=== PATIENT | female | born 1955 | race Hispanic/Latino ===

== ENCOUNTER 2017-09-18 18:50 | Observation (INO) | payer OTHER ==
[~2017-09-18] VITALS: Ht 154.9 cm; Wt 70.1 kg
[2017-09-18 19:21] LABS: BASOPHILS % (AUTO) 0.4 % (0.0-5.0); EOSINOPHILS % (AUTO) 0.1 % (0.0-8.0); HEMATOCRIT 36.7 % (36-48); LYMPHOCYTES % (AUTO) 10.4 % (21.0-51.0); MEAN CORPUSCULAR HEMOGLOBIN 32.7 pg (27.0-33.0); MEAN CORPUSCULAR HGB CONC 34.1 g/dL (32.0-36.0); MEAN CORPUSCULAR VOLUME 96.1 fL (79-99); MONOCYTES % (AUTO) 1.8 % (3.0-13.0); NEUTROPHILS % (AUTO) 87.3 % (40.0-77.0); NUCLEATED RED BLOOD CELLS 0.1 % (0.0-0.19); PLATELET COUNT (AUTO) 389 K/uL (130-400); RED BLOOD CELL COUNT(AUTO) 3.82 MIL/uL (4.00-5.50); RED CELL DISTRIBUTION WIDTH 15.3 % (11.0-15.5)
[2017-09-18 19:31] LABS: CREATININE 0.6 mg/dL (0.5-1.5); POTASSIUM 3.7 mmol/L (3.5-5.1)
[2017-09-18 19:38] LABS: INR 0.95 (0.85-1.15); PARTIAL THROMBOPLASTIN TIME 28.7 SEC (26.3-35.5)
[2017-09-18 19:44] LABS: ALBUMIN 3.9 g/dL (3.5-5.0); BILIRUBIN,TOTAL 0.6 mg/dL (0.2-1.0); CREATINE KINASE MB 4.1 ng/mL (0.5-3.6)
[2017-09-18] MEDS ORDERED: ENOXAPARIN SODIUM 100 MG/1 ML SQ ONE (20:43)
[2017-09-18] MEDS ORDERED: ASPIRIN 325 MG TABLET ONE (20:44)
[2017-09-18] MEDS ORDERED: NITROGLYCERIN 1GM/1 INCH PACKET TD ONE (21:26)
[2017-09-18 21:40] VITALS: BP 146/84
[2017-09-18] MEDS: NITROGLYCERIN 1GM/1 INCH PACKET TD SCH (22:00)
[2017-09-18 23:34] VITALS: BP 117/69
[2017-09-19] MEDS ORDERED: PRED10TA3 PO (00:06)
[2017-09-19] MEDS ORDERED: ALEN35TA31 PO (00:06)
[2017-09-19] MEDS ORDERED: FOLI1TAB15 PO (00:06)
[2017-09-19] MEDS ORDERED: AZAT50TA PO (00:06)
[2017-09-19] MEDS ORDERED: METH25VI11 IJ (00:06)
[2017-09-19 01:30] LABS: CREATINE KINASE MB 2.5 ng/mL (0.5-3.6); CREATINE KINASE, TOTAL 215 U/L (21-232); MYOGLOBIN 64 ng/mL (10-92); TROPONIN I < 0.04 ng/mL (0.00-0.06)
[2017-09-19 04:44] VITALS: BP 124/75
[2017-09-19] MEDS: NITROGLYCERIN 1GM/1 INCH PACKET TD SCH (04:51)
[2017-09-19] MEDS ORDERED: NITROGLYCERIN 1GM/1 INCH PACKET TD SCH (07:44)
[2017-09-19] MEDS ORDERED: LIDOCAINE HCL-MPF 1% 2ML VIAL IVP PRN (07:45)
[2017-09-19] MEDS ORDERED: LACTULOSE 20 GM/30 ML UDCUP PO PRN (07:45)
[2017-09-19] MEDS ORDERED: POTASSIUM CHLORIDE 10% ELIXIR 20 MEQ/15 ML UDCUP PO PRN (07:45)
[2017-09-19] MEDS ORDERED: MAG HYDROX/AL HYDROX/SIMETH ES 30 ML SUSP UDCUP PO PRN (07:45)
[2017-09-19] MEDS ORDERED: POTASSIUM CHLORIDE 20 MEQ ERTAB PO PRN (07:45)
[2017-09-19] MEDS ORDERED: ONDANSETRON HCL 4 MG/2 ML VIAL IV PRN (07:45)
[2017-09-19] MEDS ORDERED: ACETAMINOPHEN 325 MG TAB PO PRN ×2 (07:45)
[2017-09-19] MEDS ORDERED: POTASSIUM CHLORIDE 20MEQ/100ML 100 ML IV PRN (07:45)
[2017-09-19 07:46] LABS: CREATINE KINASE MB 2.2 ng/mL (0.5-3.6); CREATINE KINASE, TOTAL 179 U/L (21-232); MYOGLOBIN 76 ng/mL (10-92); TROPONIN I < 0.04 ng/mL (0.00-0.06)
[2017-09-19 08:57] VITALS: BP 102/56
[2017-09-19] MEDS ORDERED: ALENDRONATE SODIUM 35 MG TAB PO SCH (09:00)
[2017-09-19] MEDS ORDERED: METHOTREXATE 25 MG IVP SCH (09:00)
[2017-09-19] MEDS ORDERED: PANTOPRAZOLE SODIUM 40 MG TABLET.DR PO SCH (09:00)
[2017-09-19] MEDS ORDERED: AZATHIOPRINE 50 MG TAB PO SCH (09:00)
[2017-09-19] MEDS ORDERED: ASPIRIN 325MG EC TAB 325 MG TABLET.DR PO SCH (09:00)
[2017-09-19] MEDS ORDERED: PREDNISONE 10 MG TABLET PO SCH (09:00)
[2017-09-19] MEDS ORDERED: FOLIC ACID 1 MG TABLET PO SCH (09:00)
[2017-09-19] MEDS ORDERED: METHOTREXATE SODIUM/PF 25 MG/ML ML IJ SCH (09:00)
[2017-09-19] MEDS ORDERED: REGADENOSON 0.4 MG/5 ML PF SYG IVP SCH (10:15)
[2017-09-19] MEDS ORDERED: FAMO20TA8 PO (10:29)
[2017-09-19] MEDS ORDERED: BUSP15 PO (10:29)
[2017-09-19] MEDS ORDERED: BUSPIRONE HCL 5 MG TABLET PO PRN (10:30)
[2017-09-19 13:15] VITALS: BP 184/87
[2017-09-19 16:49] VITALS: BP 137/67
== END 2017-09-19 18:10 | disposition home or self-care (01) ==
LOC: EDH 18:50 → EDHIP 20:43 → 3AH 21:26
PROVIDERS: ADMIT Internal Medicine; ATTEND Internal Medicine
DX: R07.89 Other chest pain (principal); F41.1 Generalized anxiety disorder; I25.10 Atherosclerotic heart disease of native coronary artery without angina pectoris; M81.0 Age-related osteoporosis without current pathological fracture; K21.9 Gastro-esophageal reflux disease without esophagitis; M33.20 Polymyositis, organ involvement unspecified; G50.0 Trigeminal neuralgia; Z82.49 Family history of ischemic heart disease and other diseases of the circulatory system; Z79.52 Long term (current) use of systemic steroids; Z79.899 Other long term (current) drug therapy
CPT/HCPCS: 36415 ×2; 71045; 78452; 80053; 82550 ×3; 82553 ×3; 83874 ×3; 84484 ×3; 85025; 85610; 85730; 93005 ×2; 93017; 99291; A9500 ×2; G0378 ×21; J1650; J2785; J7500; J7512; 96374; J9250

== ENCOUNTER → 2022-07-25 | Outpatient (CLI) | payer MEDICARE ==
[~2022-07-25] MED LIST: ALEN35TA53 PO; AZAT50TA PO; BUSP15 PO; FAMO20TA8 PO; FOLI1TAB15 PO; METH25VI11 IJ; PRED10TA3 PO
== END | disposition home or self-care (01) ==
LOC: LAB 14:32
PROVIDERS: ATTEND Internal Medicine
DX: M25.562 Pain in left knee (principal)
CPT/HCPCS: 73560

== ENCOUNTER → 2023-08-26 | Outpatient (CLI) | payer MEDICARE | END | disposition home or self-care (01) | LOC: RAH 11:29 | PROVIDERS: ATTEND Internal Medicine | DX: I10 Essential (primary) hypertension (principal); R51.9 Headache, unspecified | CPT/HCPCS: 70450 ==

== ENCOUNTER 2024-10-27 05:47 | Day surgery (SDC) | payer MEDICARE ==
[2024-10-27] VITALS (11 sets, daily range): BP systolic 126–166; BP diastolic 59–77; PULSE 43–57; RESP 15–18; TEMP 97–98.6
[~2024-10-27] VITALS: Ht 154.9 cm; Wt 57.2 kg
[~2024-10-27 05:47] MED LIST changes: -ALEN35TA53 PO; -AZAT50TA PO; -BUSP15 PO; +CARV3.12 PO; +CLOP75TA32 PO; -FAMO20TA8 PO; +FAMO40TA7 PO; +LOSA50TA64 PO; +METH2.5T6 PO; -METH25VI11 IJ; -PRED10TA3 PO; +PRED1TAB PO
[2024-10-27] MEDS ORDERED: AZATHIOPRINE PO (07:05)
[2024-10-27] MEDS: 0.9%NACL 1000ML 1,000 ML IV ONE (07:09)
[2024-10-27] MEDS ORDERED: proPOFol 10 MG/ML 20ML VIAL IV ONE (08:25)
[2024-10-27] MEDS ORDERED: EPINEPHrine PF 1MG (1:1,000) 1 MG/ML AMP ONE (08:35)
== END 2024-10-27 09:42 | disposition home or self-care (01) ==
LOC: ENDO 05:47 → DAH 05:47 → ENDO 09:42
PROVIDERS: ATTEND Internal Medicine Gastroenterology
DX: R13.10 Dysphagia, unspecified (principal); K22.2 Esophageal obstruction; K44.9 Diaphragmatic hernia without obstruction or gangrene; K22.89 Other specified disease of esophagus; K21.00 Gastro-esophageal reflux disease with esophagitis, without bleeding; R11.0 Nausea; R15.9 Full incontinence of feces; E78.5 Hyperlipidemia, unspecified; F41.9 Anxiety disorder, unspecified; I25.10 Atherosclerotic heart disease of native coronary artery without angina pectoris; Z86.0100 Personal history of colon polyps, unspecified; Z79.899 Other long term (current) drug therapy; Z79.82 Long term (current) use of aspirin; Z80.0 Family history of malignant neoplasm of digestive organs; Z87.898 Personal history of other specified conditions
CPT/HCPCS: 43249; J7030; J0171; J2704; A4620; A4215 ×2; A4223; A4222; A4221; A4663; A4606; C1726; J3490

== ENCOUNTER 2025-01-04 06:34 | Observation (INO) | payer MEDICARE ==
[~2025-01-04] VITALS: Ht 154.9 cm; Wt 58.5 kg
[~2025-01-04 06:34] MED LIST changes: +AZATHIOPRINE PO
--- NOTE | 2025-01-04 07:07 | NUR ---
REPORT GIVEN TO GREG AGUAYO AT THIS TIME
--- NOTE | 2025-01-04 07:16 | ERN ---
General Chief Complaint: Mechanical Fall Stated Complaint: FELL BACK, BUMP ON HEAD Time Seen by MD: 06:50 Source: patient, family History of Present Illness Initial Comments pt Is a 69-year-old female coming in after she states that she was squatting d own pushing an object and fell back. She states he fell back hitting herself in the top of her head. She did not lose consciousness but he is complaining of a headache. Allergies: Coded Allergies: No Known Drug Allergies (Verified Allergy, Unknown, 09/18/17) Home Meds Reported Medications [Azathioprine] No Conflict Check, 50 MG PO BID 10/27/24 Famotidine (Famotidine) 40 Mg Tablet, 1 TAB PO DAILY for 30 Days, #30 TAB 0 Refills 10/21/24 Losartan Potassium (Losartan Potassium) 50 Mg Tablet, 1 TAB PO DAILY for 30 Days, #30 TAB 0 Refills 10/21/24 Carvedilol (Carvedilol) 3.125 Mg Tablet, 1 TAB PO BID for 30 Days, #60 TAB 0 Refills 10/21/24 Clopidogrel Bisulfate (Clopidogrel) 75 Mg Tablet, 1 TAB PO QODAY for 30 Days, #30 TAB 0 Refills 10/21/24 Methotrexate Sodium (Methotrexate) 2.5 Mg Tablet, 6 TAB PO QWEEK for 28 Days, #24 TAB 0 Refills 10/21/24 Prednisone (Prednisone) 1 Mg Tablet, 1 MG PO AM, TAB 10/21/24 Folic Acid (Folic Acid) 1 Mg Tablet, 1 MG PO DAILY, TAB 09/19/17 Past Medical History Past Medical History: High Cholesterol, Hypertension, Vascular Disease Past Surgical History: None ROS Dictation CONSTITUTIONAL: No chills, no fever, no weakness, no diaphoresis, no malaise. HEAD/FACE: signs of trauma. EENT: No eye pain, no blurred vision, no tearing, no double vision, no ear pain, no ear discharge, no nose pain, no nasal congestion, no throat pain, no throat swelling, no mouth pain. RESPIRATORY: No cough, no orthopnea, no SOB, no stridor, no wheezing. CARDIOVASCULAR: No chest pain, no edema, no palpitations, no syncope. GASTROINTESTINAL/ABDOMINAL: No abdominal pain, no constipation, no diarrhea, no nausea, no vomiting. GENITOURINARY: No abnormal discharge, no dysuria, no frequent urination, no hematuria. No complaints of pain in the genitals. MUSCULOSKELETAL: No back pain, no gout, no joint pain, no joint swelling, no muscle pain, no muscle stiffness, no neck pain. INTEGUMENTARY: No change in color, no change in hair/nails, no dryness, no lesion, no lumps, no rash. NEUROLOGICAL/PSYCH: No anxiety, not depressed, no emotional problem, no headache, no numbness, no pre-existing deficit, no history of seizures, no tremors, no weakness. HEMATOLOGIC/LYMPHATIC: Not anemic, no history of blood clots, no apparent bleeding, no bruising, glands not swollen. All Systems Negative, Except as Noted. Physical Exam Physical Exam Dictation VITAL SIGNS: Reviewed. GENERAL APPEARANCE: Alert, oriented x3, no acute distress, obese. HEAD AND FACE: traumatic., occipital hematoma EYES: PERRL, pink conjunctivas, eyelid no trauma, anterior chamber clear. EARS: Pinnas intact and no signs of trauma or erythema. Ear canals clear and no discharge. TMs no erythema. NOSE: No discharge, no bleeding. OROPHARYNX: Mouth normal, teeth no caries, tongue pink. Pharynx clear, no erythema. Tonsils no exudates, no abscesses noted. Mucous membrane moist. NECK: Supple, non-tender, no thyromegaly, no masses, no JVD, no bruits. BREAST: Deferred. CHEST: No tenderness, no crepitus, no paradoxical movement, no retractions. LUNGS: Clear, well-ventilated, symmetric, no rales, no wheezing, no rhonchi, no stridor, good breath sounds bilaterally. HEART: Regular rate, regular rhythm, no murmur, no gallops. VASCULAR: No peripheral edema. ABDOMEN: Soft, positive bowel sounds, nondistended, no guarding, nontender, no rebound, no masses no hepatomegaly, no splenomegaly, no Martinez's sign, no hernias. RECTAL: Deferred. GENITAL: Deferred. NEUROLOGICAL: Normal speech, gross motor function intact, gross sensory function intact. MUSCULOSKELETAL: Neck nontender, full range of motion, back nontender, full range of motion. EXTREMITIES: Nontender, full range of motion. SKIN: Color pink, dry, no turgor, no rash, no lacerations, no abrasions, no contusions. LYMPHATICS: Deferred. Results Laboratory and Microbiology Lab and Micro Result Laboratory Tests Test 01/04/25 09:46 White Blood Count 6.4 K/uL (4.8-10.8) Red Blood Count 3.53 MIL/uL (4.00-5.50) L Hemoglobin 11.9 g/dL (12.0-16.0) L Hematocrit 35.5 % (36-48) L Mean Corpuscular Volume 100.6 fL (79-99) H Mean Corpuscular Hemoglobin 33.7 pg (27.0-33.0) H Mean Corpuscular Hemoglobin Concent 33.5 g/dL (32.0-36.0) Red Cell Distribution Width 13.8 % (11.0-15.5) Platelet Count 329 K/uL (130-400) Mean Platelet Volume 9.4 fL (7.5-10.5) Immature Granulocyte % (Auto) 0.3 % (0-1) Neutrophils (%) (Auto) 75.3 % (40.0-77.0) Lymphocytes (%) (Auto) 19.4 % (21.0-51.0) L Monocytes (%) (Auto) 4.1 % (3.0-13.0) Eosinophils (%) (Auto) 0.6 % (0.0-8.0) Basophils (%) (Auto) 0.3 % (0.0-5.0) Neutrophils # (Auto) 4.8 K/uL (1.8-7.7) Lymphocytes # (Auto) 1.2 K/uL (1.0-4.8) Monocytes # (Auto) 0.3 K/uL (0.1-1.0) Eosinophils # (Auto) 0.04 K/uL (0.00-0.70) Basophils # (Auto) 0.02 K/uL (0.00-0.20) Absolute Immature Granulocyte (auto 0.02 K/uL (0-1) Nucleated Red Blood Cells 0.0 % (0.0-0.19) Labs Reviewed?: Yes EKG/XRAY/US/CT/MRI CT Scan Comment [address] [place] [address] IMAGING REPORT Signed PATIENT: SMILEY PRADO MR#: [id number] : 1955 SEX: F AGE: 69 LOCATION: [facility] ORDER 1 STATUS: REG ER REPORT#: [id number] SERVICE 1 REASON: fall ORDERING PHYSICIAN: AJ BRIAN MD PROCEDURE: HEAD WO - CT HEAD/BRAIN W/O CONTRAST EXAM: CT Head Without IV contrast. CLINICAL HISTORY: History of fall present. TECHNIQUE: Axial computed tomography images of the head/brain without intravenous contrast. COMPARISON: None provided. FINDINGS: BRAIN: Mild to moderate bilateral cerebral and cerebellar neuroparenchymal atrophy. No evidence of acute hemorrhage. No mass lesion. No CT evidence for acute territorial infarct. No midline shift or extra-axial collections. VENTRICLES: Mild prominence of the ventricular system. ORBITS: The orbits are unremarkable. SINUSES AND MASTOIDS: The paranasal sinuses and mastoid air cells are clear. BONES: No fracture. SOFT TISSUES: Subgaleal swelling/hematoma measuring a maximum of 5.2 mm in thickness along the right high parietal region. IMPRESSION: No acute intracranial abnormality. Mild to moderate bilateral cerebral and cerebellar neuroparenchymal atrophy. Subgaleal swelling/hematoma along the right high parietal region. /[place] DICTATED BY: MARJAN SALAZAR MD DATE: 01/04/25933 ELECTRONICALLY SIGNED BY: MARJAN SALAZAR MD DATE: 01/04/25933 [facility] MDM: Differential diagnosis: Concussion, head injury, fracture, subgaleal hematoma Rationale: Tests considered and ordered secondary to shared decision making include: Previous outside records reviewed: Old ER visits. Risk of complication and/or morbidity or mortality of patient management: None Medications-Per medication reconciliation Need for hospitalization: Patient does not meet criteria for hospitalization. Need for emergency major/minor surgery: No There are no social concerns with this patient. Prescription drug management Prescriptions will include symptomatic care Patient's prior external medical records from other ER visits were reviewed by me as indicated. Prior testing and results from previous visits were reviewed. Prior tests were taken into account with medical decision making and resource utilization, independent historian/historians were used to obtain complete medical history. I independently interpreted the test that were performed, results were reviewed by me and considered findings on radiology if ordered. Medical management and examination interpretation discussions were had by me with other qualified healthcare professionals as indicated for the patient's care. Patient will be admitted under the care of Dr. Becker for ongoing evaluation and management. ED Course Orders Procedure Category Date Status Time Ct Head/Brain W/O CT 01/04/25 Resulted Contrast 07:12 Cbc With Differential LAB 01/04/25 Complete 09:30 Basic Metabolic Panel LAB 01/04/25 In Process 09:30 Prothrombin Time With LAB 01/04/25 In Process INR 09:30 Vital Signs Date Time Temp Pulse Resp B/P (MAP) Pulse Ox O2 Delivery O2 Flow Rate FiO2 01/04/25 08:14 98.1 66 17 161/85 100 Room Air* 0 21 01/04/25 06:55 98.1 65 17 181/87 100 Room Air* 0 21 01/04/25 06:38 98.1 62 18 178/86 100 Room Air 0 DX & DISP Disposition: Inpatient Decision to Admit Time: 09:58 Departure Impression: Primary Impression: Subgaleal hemorrhage Additional Impression: Platelet inhibition due to Plavix Condition: Stable Referrals: YOVANA BECKER MD (PCP) AJ BRIAN MD Jan 04, 2025 07:16
--- NOTE | 2025-01-04 08:35 | HMCIMG ---
EXAM: CT Head Without IV contrast. CLINICAL HISTORY: History of fall present. TECHNIQUE: Axial computed tomography images of the head/brain without intravenous contrast. COMPARISON: None provided. FINDINGS: BRAIN: Mild to moderate bilateral cerebral and cerebellar neuroparenchymal atrophy. No evidence of acute hemorrhage. No mass lesion. No CT evidence for acute territorial infarct. No midline shift or extra-axial collections. VENTRICLES: Mild prominence of the ventricular system. ORBITS: The orbits are unremarkable. SINUSES AND MASTOIDS: The paranasal sinuses and mastoid air cells are clear. BONES: No fracture. SOFT TISSUES: Subgaleal swelling/hematoma measuring a maximum of 5.2 mm in thickness along the right high parietal region. IMPRESSION: No acute intracranial abnormality. Mild to moderate bilateral cerebral and cerebellar neuroparenchymal atrophy. Subgaleal swelling/hematoma along the right high parietal region. /[place]
--- NOTE | 2025-01-04 09:00 | NUR ---
PT TOOK HER HOME MEDICATIONS NOTIFIED ER LOSARTAN 50MG AND CARVEDILOL 3.125MG
[2025-01-04 09:52] LABS: IMMATURE GRANULOCYTE ABSOLUTE 0.02 K/uL (0-1); NUCLEATED RED BLOOD CELLS 0.0 % (0.0-0.19); PLATELET COUNT (AUTO) 329 K/uL (130-400); RED BLOOD CELL COUNT(AUTO) 3.53 MIL/uL (4.00-5.50); RED CELL DISTRIBUTION WIDTH 13.8 % (11.0-15.5); WHITE BLOOD COUNT (AUTO) 6.4 K/uL (4.8-10.8)
[2025-01-04 10:01] LABS: CREATININE 0.3 mg/dL (0.5-1.0); GLOMERULAR FILTR. RATE CALC 116.0 mL/min (>90); GLUCOSE,RANDOM 117.0 mg/dL (70-105); SODIUM SERUM 138.0 mmol/L (136-145); UREA NITROGEN, BLOOD 11.0 mg/dL (7-18)
[2025-01-04 10:03] LABS: INR 1.0 (0.85-1.15)
[2025-01-04] MEDS ORDERED: CLOP75TA32 PO ×2 (10:04→10:16)
[2025-01-04] MEDS ORDERED: PRED1TAB PO ×2 (10:04→16:31)
[2025-01-04] MEDS ORDERED: FAMO40TA7 PO ×2 (10:04→10:16)
[2025-01-04] MEDS ORDERED: LOSA50TA64 PO (10:04)
[2025-01-04] MEDS ORDERED: FISH12002 PO (10:12)
[2025-01-04] MEDS ORDERED: NITR0.4T50 SL ×2 (10:12→10:16)
[2025-01-04] MEDS ORDERED: CHOL500051 PO (10:12)
[2025-01-04] MEDS ORDERED: CALC-916 PO (10:12)
[2025-01-04] MEDS ORDERED: TACR30OI TP ×2 (10:12→10:16)
[2025-01-04] MEDS ORDERED: CARV6.25 PO (10:12)
[2025-01-04] MEDS ORDERED: VITA-328 PO (10:12)
[2025-01-04] MEDS ORDERED: METR45CR TP ×2 (10:12→10:16)
[2025-01-04] MEDS ORDERED: LACT1CAP70 PO (10:12)
[2025-01-04] MEDS ORDERED: FERR-82 PO (10:12)
[2025-01-04] MEDS ORDERED: AZAT50TA17 PO (10:12)
--- NOTE | 2025-01-04 14:27 | NUR ---
DCP: HOME Pt reports she fell inside her home, son was present and called 911. Pt states she her youngest son Marquez lives with her. Prior to admission pt states she was very independent, driving, able to complete home management, meal prep. Pt uses a cane as needed and has rails around toilet. Pt has no HH or HD services. Pt uses [facility] for rx meds and PCP is Javid Becker. DCP is home when medically cleared Addendum: 01/04/25 at 1441 by AURELIO MELENDEZ Amended: Links added.
--- NOTE | 2025-01-04 16:00 | NUR ---
DR MARTINEZ AT BEDSIDE
[2025-01-04] MEDS ORDERED: METH2.5T6 PO (16:22)
[2025-01-04] MEDS ORDERED: CARV3.1262 PO (16:31)
--- NOTE | 2025-01-04 17:38 | NUR ---
REPORT GIVEN TO SAILAJA
[2025-01-04 17:45] VITALS: BP 209/88; PULSE 62; RESP 18; TEMP 98.1
--- NOTE | 2025-01-04 17:45 | NUR ---
ARRIVAL TO UNIT PATIENT ARRIVED TO UNIT VIA WHEELCHAIR WITH FAMILY ACCOMPANYING. PATIENT ORIENTED TO ROOM AND VITAL SIGNS TAKEN. PATIENT'S BP FOUND TO BE 209/88 AND PATIENT WAS COMPLAINING OF A HEADACHE. SYMPTOMS REPORTED TO PRIMARY PHYSICIAN, DR. MARTINEZ, HYPERTENSION PRN ORDERS GIVEN. 20 GAUGE IV ACCESS ESTABLISHED IN THE RIGHT FOREARM AND PATIENT WAS GIVEN 20MG OF HYDRALAZINE AND 650MG OF PO ACETAMINOPHEN. ASSESSMENT COMPLETED.
--- NOTE | 2025-01-04 18:01 | HP ---
HISTORY AND PHYSICAL Date of Visit: Jan 04, 2025 Time of Visit: 18:01 ADMISSION DATE: Jan 04, 2025 at 09:55 CC: S/P FALL HPI: THIS IS A 69 YR OLD WOMAN WITH HISTORY OF CAD ON PLAVIX THERAPY WHO HAD AN ACCIDENTAL FALL AT HOME. SHE WAS TRYING TO LIFT A 5 LB WATER JUG FROM THE FLOOR WHEN SHE LOST HER FOOTING AND FELT HER LEGS GIVE OUT FROM UNDER HER. SHE FELL BACK AND HIT THE RIGHT SIDE OF HER HEAD ON THE GROUND. SHE DID NOT LOSE CONSCIOUSNESS. SHE DEVELOPED A SEVERE HEADACHE AND PRESENTED TO THE ER FOR EVALUATION. NO RECENT FEVERS, CHILLS, NAUSEA, VOMITING, DIARRHEA, CONSTIPATION OR ABDOMINAL PAIN. NO URINARY SYMPTOMS AND NO ABNORMAL WEIGHT LOSS OR LOSS OF APPETITE. NO CP SOB PALPITATIONS OR DIZZINESS. PAST MEDICAL HISTORY: GENERALIZED ANXIETY D/O CORONARY ARTERY DISEASE LHC - 12/2009 SHOWING 60% LAD, 95% OSTIAL LESION, LEXISCAN STRESS TEST 11/27 - NEGATIVE [facility]- RCA 20-30% OM 70% LAD 30 % MID NL EF - 01/2022 ON PLAVIX THERAPY OSTEOPOROSIS GERD POLYMYOSITIS ON IMMUNOSUPPRESSIVE THERAPY AND CHRONIC STEROIDS S/P PART HYSTERECTOMY MIXED HYPERLIPIDEMIA WITH STATIN MYOPATHY ALLERGIC RHINITIS HX ESOPHAGEAL STRICTURE 09/2021 S/P BALLOON 09/2021 T 11 AND T 6 VERTEBRAL COMPRESSION FRACTURES SOCIAL HISTORY: AND LIVES LOCALLY NO ALCOHOL TOBACCO OR DRUG ABUSE FAMILY HISTORY: + CVD AND HTN ^ Patient History: Carcinomas MOTHER Cardiovascular disease FATHER Hypertension MOTHER SISTER Allergies: Coded Allergies: No Known Drug Allergies (Verified Allergy, Unknown, 09/18/17) Scheduled Azathioprine (Imuran), 50 MG PO BID Calcium Carbonate (Calcium Carbonate), 600 MG PO BID Carvedilol (Coreg), 3.125 MG PO BID Cholecalciferol (Vitamin D3) (Vitamin D3), 125 MCG PO DAILY Clopidogrel Bisulfate (Clopidogrel), 75 MG PO DAILY Famotidine (Famotidine), 40 MG PO HS Ferrous Sulfate (Iron), 325 MG PO DAILY Fish Oil/Borage/Flax/Om3,6,9#1 ([place] 3-6-9 1,200 mg Softgel), 1,200 MG PO DAILY Folic Acid (Folic Acid), 1 MG PO DAILY, (Reported) Lactobacillus Acidophilus (Probiotic), 1 CAP PO DAILY Losartan Potassium (Losartan Potassium), 50 MG PO BID Methotrexate Sodium (Methotrexate), 6 TAB PO QWEEK Metronidazole (Metronidazole), 1 APPL TP BID Nitroglycerin (Nitroglycerin), 0.4 MG SL AD Prednisone (Prednisone), 3 TAB PO DAILY Tacrolimus (Tacrolimus), 1 APPL TP BID Vitamin B Complex (B Complex), 1 CAP PO DAILY Discontinued Medications Carvedilol (Carvedilol), 1 TAB PO BID, (Reported) Carvedilol (Carvedilol), 6.25 MG PO BID Clopidogrel Bisulfate (Clopidogrel), 1 TAB PO QODAY, (Reported) Discontinued Reason: Prescription changed Famotidine (Famotidine), 1 TAB PO HS Discontinued Reason: Prescription changed Losartan Potassium (Losartan Potassium), 1 TAB PO DAILY, (Reported) Discontinued Reason: Prescription changed Prednisone (Prednisone), 2 TAB PO AM [Azathioprine], 50 MG PO BID, (Reported) Review of Systems Normal Constitutional:, Normal Eyes:, Normal Ear/Nose/Mouth/Throat, Normal Cardiovascular:, Normal Respiratory:, Normal Gastrointestinal:, Normal Genitourinary:, Normal Integumentary:, Normal Musculoskeletal:, Normal Psychological:, Normal Endocrine:, Normal Hematologic/Lymphatic:, Normal Allergic/Immunologic:; Abnormal Neurological: (RIGHT SIDED HEADACHE) Physical Exam Vital Signs Vital Signs Date Time Temp Pulse Resp B/P (MAP) Pulse Ox O2 Delivery O2 Flow Rate FiO2 01/04/25 06:38 98.1 62 18 178/86 100 Room Air 0 01/04/25 06:55 21 Appearance: Well dev, well nourished Eyes: Clear, PERRL, EOM Normal, Normal Conjuctivae/eyelid Ear/Nose/Mouth/Throat: Landmarks WNL, Hearing WNL, TMs WNL, Nasal w/o drainage, Oropharynx WNL Neck: Symmetric, trach midline Cardiovascular: PMI WNL, Regular Rate, Regular Rhythm, Normal S1, S2, Femoral Pulses +2, Pedal Pulses +2, No Edema Respiratory: No Retractions, No rubs/wheezing, Lungs clear G.I.: No pain w/ palpations, No rebound tenderness Musculoskeletal: Gait WNL, Strength/Tone WNL Skin: No rash/ulcers, No induration/nodules Neurology: Nerves I-XII intact, DTR intact, Sensation WNL Psychology: Insight WNL, Orientation WNL, Memory WNL, Affect WNL Diagnostics Laboratory Tests Test 01/04/25 09:46 Range/Units White Blood Count 6.4 4.8-10.8 K/uL Red Blood Count 3.53 4.00-5.50 MIL/uL Hemoglobin 11.9 12.0-16.0 g/dL Hematocrit 35.5 36-48 % Mean Corpuscular Volume 100.6 79-99 fL Mean Corpuscular Hemoglobin 33.7 27.0-33.0 pg Mean Corpuscular Hemoglobin Concent 33.5 32.0-36.0 g/dL Red Cell Distribution Width 13.8 11.0-15.5 % Platelet Count 329 130-400 K/uL Mean Platelet Volume 9.4 7.5-10.5 fL Immature Granulocyte % (Auto) 0.3 0-1 % Neutrophils (%) (Auto) 75.3 40.0-77.0 % Lymphocytes (%) (Auto) 19.4 21.0-51.0 % Monocytes (%) (Auto) 4.1 3.0-13.0 % Eosinophils (%) (Auto) 0.6 0.0-8.0 % Basophils (%) (Auto) 0.3 0.0-5.0 % Neutrophils # (Auto) 4.8 1.8-7.7 K/uL Lymphocytes # (Auto) 1.2 1.0-4.8 K/uL Monocytes # (Auto) 0.3 0.1-1.0 K/uL Eosinophils # (Auto) 0.04 0.00-0.70 K/uL Basophils # (Auto) 0.02 0.00-0.20 K/uL Absolute Immature Granulocyte (auto 0.02 0-1 K/uL Nucleated Red Blood Cells 0.0 0.0-0.19 % Prothrombin Time 10.6 9.6-11.6 SEC Prothromb Time International Ratio 1.00 0.85-1.15 Sodium Level 138 136-145 mmol/L Potassium Level 4.1 3.5-5.1 mmol/L Chloride Level 102 101-111 mmol/L Carbon Dioxide Level 31 21-32 mmol/L Blood Urea Nitrogen 11 7-18 mg/dL Creatinine 0.3 0.5-1.0 mg/dL Glomerular Filtration Rate Calc 116 >90 mL/min Random Glucose 117 70-105 mg/dL Total Calcium 9.0 8.5-10.1 mg/dL Assessment/Plan Assessment/Plan RADIOLOGY : CT HEAD/BRAIN W/O CONTRAST BRAIN: Mild to moderate bilateral cerebral and cerebellar neuro parenchymal atrophy. No evidence f acute hemorrhage. No mass lesion. No CT evidence for acute territorial infarct. No midline shift or extra-axial collections VENTRICLES: Mild prominence of the ventricular system. ORBITS: The orbits are unremarkable. SINUSES AND MASTOIDS: The paranasal sinuses and mastoid air cells are clear. BONES: No fracture. SOFT TISSUES: Subgaleal swelling/hematoma measuring a maximum of 5.2 mm in thickness along the right high parietal region. IMPRESSION: No acute intracranial abnormality. Mild to moderate bilateral cerebral and cerebellar neuro parenchymal atrophy. Subgaleal swelling/hematoma along the right high parietal region. ASSESSMENT: THIS IS A 69 YR OLD WOMAN WITH HISTORY OF GENERALIZED ANXIETY D/O CORONARY ARTERY DISEASE LHC - 12/2009 SHOWING 60% LAD, 95% OSTIAL LESION, LEXISCAN STRESS TEST 11/27 - NEGATIVE [facility]- RCA 20-30% OM 70% LAD 30 % MID NL EF - 01/2022 ON PLAVIX THERAPY OSTEOPOROSIS GERD POLYMYOSITIS ON IMMUNOSUPPRESSIVE THERAPY AND CHRONIC STEROIDS S/P PART HYSTERECTOMY MIXED HYPERLIPIDEMIA WITH STATIN MYOPATHY ALLERGIC RHINITIS HX ESOPHAGEAL STRICTURE 09/2021 S/P BALLOON 09/2021 T 11 AND T 6 VERTEBRAL COMPRESSION FRACTURES S/P FALL WITH RIGHT PARIETAL SUBGALEAL HEMATOMA 5.2 MM PLAN: ADMIT FOR OBSERVATION HOLD PLAVIX ANALGESICS PRN ADJUST BP MEDS NEEDED NEUROLOGIC CHECKS REPEAT HCT IN AM CONT SUPPORTIVE MEASURES YOVANA MARTINEZ MD Jan 04, 2025 18:01
--- NOTE | 2025-01-04 18:25 | NUR ---
BP RECHECK PATIENT'S BLOOD PRESSURE WAS RECHECKED AND IS NOW 130/62 AND PATIENT REPORTS THAT HER HEADACHE IS BEGINNING TO EASE WELL.
[2025-01-04] MEDS ORDERED: LACTULOSE 20 GM/30 ML UDCUP PO PRN (18:30)
[2025-01-04] MEDS ORDERED: MAG/ALUM/SIMETH 30 ML UDCUP PO PRN (18:30)
[2025-01-04 18:50] VITALS: O2SAT 97
[2025-01-04 18:55] VITALS: BP 130/62; PULSE 79
[2025-01-04 20:00] VITALS: BP 124/61; PULSE 75; RESP 16; TEMP 97.8; O2SAT 93
[2025-01-04] MEDS: AZATHIOPRINE 50 MG TAB PO SCH (21:12)
[2025-01-04] MEDS: FAMOTIDINE 20MG TAB PO SCH (21:12)
--- NOTE | 2025-01-04 21:18 | NUR ---
PATIENT REFUSING HER HS CARVEDILOL DOSE, DUE TO BP 124/61. I ASSURED HER THAT IT WOULD BE OKAY AND WE WOULD CONTINUE TO MONITOR THROUGHOUT THE NIGHT BUT SHE REMAINED VERY HESITANT. MEDICATION HELD AT THIS TIME
[2025-01-05] VITALS: BP 138/69; PULSE 61; RESP 16; TEMP 97.7
[2025-01-05 04:00] VITALS: BP 128/66; PULSE 60; RESP 16; TEMP 97.5
[2025-01-05 07:54] VITALS: BP 136/71; PULSE 65; RESP 18; TEMP 98.1
[2025-01-05 08:00] VITALS: O2SAT 98
--- NOTE | 2025-01-05 09:46 | HMCIMG ---
Exam: NONCONTRAST CT BRAIN REASON: ASSESS HEMATOMA. COMPARISON: None. TECHNIQUE: Images are obtained from vertex to the skull base. The exam was performed without IV contrast. FINDINGS: There is normal appearing brain parenchyma. There are no focal mass lesions. There is is no evidence of intracranial hemorrhage or acute stroke. Ventricles and sulci appear normal. Posterior fossa and brainstem structures are unremarkable. Paranasal sinuses and remaining extracranial soft tissues appear normal as well.There is mild global atrophy. Graft is a small right parietal scalp hematoma IMPRESSION: 1. No acute process intracranial seen in CT of the head without intravenous contrast.. 2. Small right scalp hematoma with no associated fracture CT was performed with one or more following dose reduction techniques: automated exposure control, adjustment of the mA and kv according to patient's size, or use of a iterative reconstruction technique.
[2025-01-05] MEDS ORDERED: LOSA50TA64 PO (10:05)
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
[2025-01-05 11:11] VITALS: BP 149/77; PULSE 62; RESP 18; TEMP 98
--- NOTE | 2025-01-05 14:30 | NUR ---
discharged patient given printed discharge paperwork, educated patient regarding diet, activity, follow ups, medications, signs and symptoms to report/return to ER. answered patient questions, patient understood.
== END 2025-01-05 14:56 | disposition home or self-care (01) ==
LOC: EDH 06:34 → EDHIP 09:55 → 3BH 17:45
PROVIDERS: ADMIT Internal Medicine; ATTEND Internal Medicine
DX: S06.0XAA Concussion with loss of consciousness status unknown, initial encounter (principal); S00.03XA Contusion of scalp, initial encounter; G44.309 Post-traumatic headache, unspecified, not intractable; F41.1 Generalized anxiety disorder; I25.10 Atherosclerotic heart disease of native coronary artery without angina pectoris; K21.9 Gastro-esophageal reflux disease without esophagitis; E78.2 Mixed hyperlipidemia; D84.821 Immunodeficiency due to drugs; M48.50XA Collapsed vertebra, not elsewhere classified, site unspecified, initial encounter for fracture; G72.0 Drug-induced myopathy; I10 Essential (primary) hypertension; Z79.899 Other long term (current) drug therapy; Z79.60 Long term (current) use of unspecified immunomodulators and immunosuppressants; Z79.52 Long term (current) use of systemic steroids; Z79.02 Long term (current) use of antithrombotics/antiplatelets; Z90.710 Acquired absence of both cervix and uterus; W18.39XA Other fall on same level, initial encounter; Y93.89 Activity, other specified; Y92.89 Other specified places as the place of occurrence of the external cause; Y99.8 Other external cause status
CPT/HCPCS: 96374; 99285; 80048; 85025; 85610; 36415; 70450 ×2; G0378 ×21; J7500 ×2; J0360; J7512; Q0162